=== PATIENT | female | born 1985 | race Caucasian/White ===

== ENCOUNTER 2017-03-16 08:49 | Inpatient (IN) | payer BC ==
[~2017-03-16] VITALS: Ht 167.6 cm; Wt 109.1 kg
[2017-03-16] MEDS ORDERED: OXYTOCIN 30U/ 0.9% NaCL 500ML 500 ML IV SCH (11:01)
[2017-03-16] MEDS ORDERED: LACTATED RINGERS 1,000 ML IV SCH ×2 (11:01→13:33)
[2017-03-16] MEDS ORDERED: OXYTOCIN 10 UNITS/ML, 1ML ONE (11:14)
[2017-03-16] MEDS ORDERED: DEXAMETHASONE 4 MG/ML, 1ML ONE (11:14)
[2017-03-16] MEDS ORDERED: FENTANYL PF 100 MCG/2ML ONE (11:14)
[2017-03-16] MEDS ORDERED: ONDANSETRON 2MG/ML, 2ML ONE ×2 (11:14→14:34)
[2017-03-16] MEDS ORDERED: CEFAZOLIN 1,000 MG ONE (11:14)
[2017-03-16] MEDS ORDERED: EPHEDRINE 50 MG/ML, 1ML ONE (11:14)
[2017-03-16] MEDS ORDERED: KETOROLAC 30 MG/1 ML ONE (11:14)
[2017-03-16] MEDS ORDERED: PHENYLEPHRINE 10 MG/ML ONE (11:14)
[2017-03-16] MEDS ORDERED: OXYTOCIN 30U/ 0.9% NaCL 500ML 500 ML ONE (11:26)
[2017-03-16] MEDS ORDERED: METOCLOPRAMIDE 5 MG/ML, 2ML ONE (11:26)
[2017-03-16] MEDS ORDERED: SODIUM CITRATE/CITRIC ACID 30 ML UDC ONE (11:26)
[2017-03-16] MEDS ORDERED: SODIUM CITRATE/CITRIC ACID 30 ML UDC PO ONE (11:30)
[2017-03-16] MEDS ORDERED: hydrALAzine 20 MG/ML, 1ML IV PRN (11:30)
[2017-03-16] MEDS ORDERED: MIDAZOLAM 1 MG/ML, 2ML IV PRN (11:30)
[2017-03-16] MEDS ORDERED: MEPERIDINE/PF 25MG/0.5ML IVPush PRN (11:30)
[2017-03-16] MEDS ORDERED: OXYcodone 5 MG/5 ML ORAL.SOL UDC PO PRN (11:30)
[2017-03-16] MEDS ORDERED: EPHEDRINE 50 MG/ML, 1ML IVPush PRN (11:30)
[2017-03-16] MEDS ORDERED: LACTATED RINGERS 1,000 ML IV ONE (11:30)
[2017-03-16] MEDS ORDERED: ONDANSETRON 2MG/ML, 2ML IVPush PRN (11:30)
[2017-03-16] MEDS ORDERED: ALBUTEROL SULFATE 2.5 MG/3 ML NPPB PRN (11:30)
[2017-03-16] MEDS ORDERED: LACTATED RINGERS 1,000 ML IVBOLUS ONE (11:30)
[2017-03-16] MEDS ORDERED: HYDROmorphone 1 MG/ML, 1ML IV PRN (11:30)
[2017-03-16] MEDS ORDERED: HYDROcodone/APAP 7.5-325MG/15ML UDC PO PRN (11:30)
[2017-03-16] MEDS ORDERED: LABETALOL 5MG/ML, 20ML IV PRN (11:30)
[2017-03-16] MEDS ORDERED: METOCLOPRAMIDE 5 MG/ML, 2ML IV ONE (11:30)
[2017-03-16] MEDS ORDERED: FENTANYL PF 100 MCG/2ML IV PRN (11:30)
[2017-03-16 11:36] LABS: HEMATOCRIT 36.5 % (34.6-47.8); HEMOGLOBIN 12.4 g/dL (11.7-16.4); WHITE BLOOD COUNT 13.1 x10^3/uL (3.4-10)
[2017-03-16] MEDS ORDERED: NEWBORN KIT ONE (11:54)
[2017-03-16] MEDS ORDERED: MISOPROSTOL 200 MCG TABLET ONE (12:00)
[2017-03-16] MEDS ORDERED: CARBOPROST TROMETHAMINE 250 MCG/ML, 1ML IM ONE ×2 (12:00→15:00)
[2017-03-16] MEDS ORDERED: METHYLERGONOVINE 0.2 MG/ML IM ONE (12:00)
[2017-03-16] MEDS: LACTATED RINGERS 1,000 ML IV SCH ×2 (13:33→18:41)
[2017-03-16] MEDS: OXYTOCIN 30U/ 0.9% NaCL 500ML 500 ML IV SCH ×2 (13:33→18:41)
[2017-03-16] MEDS ORDERED: morphine SULFATE 10 MG/ML, 1ML IVPush PRN (14:00)
[2017-03-16] MEDS ORDERED: OXYcodone/APAP 5/325MG TABLET PO PRN (14:00)
[2017-03-16] MEDS ORDERED: MISOPROSTOL 200 MCG TABLET PR PRN (14:00)
[2017-03-16] MEDS ORDERED: ONDANSETRON 2MG/ML, 2ML IV PRN (14:00)
[2017-03-16] MEDS: METHYLERGONOVINE 0.2 MG/ML IM PRN ×2 (14:00→18:02)
[2017-03-16] MEDS ORDERED: MISOPROSTOL 200 MCG TABLET PR ONE (15:00)
[2017-03-16] MEDS ORDERED: OXYcodone 5 MG/5 ML ORAL.SOL UDC ONE (15:21)
[2017-03-16] MEDS ORDERED: morphine SULFATE 10 MG/ML, 1ML ONE (15:47)
[2017-03-16] MEDS: morphine SULFATE 10 MG/ML, 1ML IVPush PRN ×3 (15:50→21:13)
[2017-03-16 16:40] VITALS: BP 137/84
[2017-03-16 17:38] VITALS: BP 128/81
[2017-03-16 18:11] LABS: HEMATOCRIT 30.8 % (34.6-47.8); HEMOGLOBIN 10.6 g/dL (11.7-16.4); WHITE BLOOD COUNT 21.5 x10^3/uL (3.4-10)
[2017-03-16] MEDS: OXYcodone IR 5MG TABLET PO PRN ×2 (18:51→23:07)
[2017-03-16] MEDS: KETOROLAC 30 MG/1 ML IV SCH (19:00)
[2017-03-16 19:30] VITALS: BP 139/82
[2017-03-16 20:49] LABS: HEMATOCRIT 28.9 % (34.6-47.8); HEMOGLOBIN 9.9 g/dL (11.7-16.4); WHITE BLOOD COUNT 19.4 x10^3/uL (3.4-10)
[2017-03-16] MEDS: ACETAMINOPHEN 325 MG TABLET PO PRN (23:07)
[2017-03-16 23:25] VITALS: BP 125/72
[2017-03-17] MEDS: KETOROLAC 30 MG/1 ML IV SCH ×4 (01:00→18:38)
[2017-03-17] MEDS: ACETAMINOPHEN 325 MG TABLET PO PRN ×4 (02:44→16:11)
[2017-03-17] MEDS: OXYcodone IR 5MG TABLET PO PRN ×5 (02:45→21:51)
[2017-03-17 04:28] VITALS: BP 115/72
[2017-03-17 06:28] LABS: HEMATOCRIT 25.5 % (34.6-47.8); HEMOGLOBIN 8.6 g/dL (11.7-16.4)
[2017-03-17 07:30] VITALS: BP 105/65
[2017-03-17] MEDS: PRENATAL VIT/IRON/FA 1 EACH TABLET PO SCH (09:00)
[2017-03-17] MEDS: OXYTOCIN 30U/ 0.9% NaCL 500ML 500 ML IV SCH ×2 (09:33→19:33)
[2017-03-17] MEDS: LACTATED RINGERS 1,000 ML IV SCH ×2 (09:33→19:33)
[2017-03-17] MEDS: DOCUSATE 100 MG CAPSULE PO PRN ×2 (10:46→21:51)
[2017-03-17] MEDS: morphine SULFATE 10 MG/ML, 1ML IVPush PRN ×2 (12:06→17:22)
[2017-03-17 19:35] VITALS: BP 143/88
[2017-03-17 22:45] VITALS: BP 103/62
[2017-03-18] MEDS: KETOROLAC 30 MG/1 ML IV SCH ×4 (00:56→18:34)
[2017-03-18] MEDS: OXYcodone IR 5MG TABLET PO PRN ×4 (03:48→20:33)
[2017-03-18] MEDS: LACTATED RINGERS 1,000 ML IV SCH ×2 (05:33→15:33)
[2017-03-18] MEDS: OXYTOCIN 30U/ 0.9% NaCL 500ML 500 ML IV SCH ×2 (05:33→15:33)
[2017-03-18] MEDS: PRENATAL VIT/IRON/FA 1 EACH TABLET PO SCH (08:22)
[2017-03-18] MEDS: DOCUSATE 100 MG CAPSULE PO PRN ×2 (08:22→20:33)
[2017-03-18 10:10] VITALS: BP 113/74
[2017-03-18] MEDS ORDERED: KETOROLAC 30 MG/1 ML ONE ×2 (12:53→18:31)
[2017-03-18 19:35] VITALS: BP 129/83
[2017-03-18] MEDS: ACETAMINOPHEN 325 MG TABLET PO PRN (20:34)
[2017-03-19] MEDS: ACETAMINOPHEN 325 MG TABLET PO PRN ×6 (00:15→20:51)
[2017-03-19] MEDS: OXYcodone IR 5MG TABLET PO PRN ×6 (00:15→20:51)
[2017-03-19] MEDS: IBUPROFEN 600 MG TABLET PO PRN ×4 (00:16→19:29)
[2017-03-19] MEDS: OXYTOCIN 30U/ 0.9% NaCL 500ML 500 ML IV SCH ×3 (01:33→21:33)
[2017-03-19] MEDS: LACTATED RINGERS 1,000 ML IV SCH ×3 (01:33→21:33)
[2017-03-19] MEDS: DOCUSATE 100 MG CAPSULE PO PRN ×2 (08:40→19:30)
[2017-03-19] MEDS: PRENATAL VIT/IRON/FA 1 EACH TABLET PO SCH (08:40)
[2017-03-19 08:46] VITALS: BP 134/95
[2017-03-19 12:34] VITALS: BP 147/87
[2017-03-19 20:48] VITALS: BP 137/91
[2017-03-20] MEDS: ACETAMINOPHEN 325 MG TABLET PO PRN (01:17)
[2017-03-20] MEDS: OXYcodone IR 5MG TABLET PO PRN ×4 (01:17→16:06)
[2017-03-20] MEDS: IBUPROFEN 600 MG TABLET PO PRN ×3 (01:17→16:06)
[2017-03-20 01:20] VITALS: BP 133/84
[2017-03-20 07:20] VITALS: BP 146/92
[2017-03-20] MEDS: PRENATAL VIT/IRON/FA 1 EACH TABLET PO SCH (07:25)
[2017-03-20] MEDS: DOCUSATE 100 MG CAPSULE PO PRN (07:25)
[2017-03-20] MEDS: LACTATED RINGERS 1,000 ML IV SCH (07:33)
[2017-03-20] MEDS: OXYTOCIN 30U/ 0.9% NaCL 500ML 500 ML IV SCH (07:33)
[2017-03-20] MEDS ORDERED: OXYC-302 PO (10:04)
[2017-03-20] MEDS ORDERED: IBUP-1222 PO (10:05)
== END 2017-03-20 18:42 | disposition home or self-care (01) | DRG 765 ==
LOC: LDIP 10:16 → 2NW 16:00
PROVIDERS: ADMIT Obstetrics & Gynecology; ATTEND Obstetrics & Gynecology
PROC: 10D00Z1 Extraction of Products of Conception, Low, Open Approach (ICD-10-PCS; principal; 2017-03-16)
DX: O32.1XX0 Maternal care for breech presentation, not applicable or unspecified (principal); O72.1 Other immediate postpartum hemorrhage; Z37.0 Single live birth; Z3A.39 39 weeks gestation of pregnancy
CPT/HCPCS: 36415; 85014; 85018; 85025; 86850; 86900; J0690; J1100; J1885; J2405; J3010; J2210; J2270; J2370; J2590; J2765; J7120

== ENCOUNTER 2019-07-04 11:24 | Emergency (ER) | payer BC, OTHER ==
[~2019-07-04] VITALS: Ht 167.6 cm; Wt 102.6 kg
[~2019-07-04 11:24] MED LIST: IBUP-1222 PO; OXYC-302 PO
[2019-07-04 12:11] LABS: MEAN CORPUSCULAR HEMOGLOBIN 29.2 pg (27.0-34.8); MEAN CORPUSCULAR HGB CONC 33.7 g/dL (32.4-35.8); MEAN CORPUSCULAR VOLUME 86.6 fL (80-100); MEAN PLATELET VOLUME 7.9 fL (7.4-10.4); PLATELET COUNT 330 x10^3/uL (130-400); RED BLOOD COUNT 5.08 x10^6/uL (3.82-5.3); RED CELL DISTRIBUTION WIDTH 14.1 % (9.6-15.2)
[2019-07-04 12:16] LABS: ALBUMIN 4.1 g/dL (3.4-5.0); ANION GAP 9 mmol/L (5-15); CALCIUM 8.7 mg/dL (8.5-10.1); CHLORIDE 108 mmol/L (98-107)
[2019-07-04 12:22] LABS: CREATININE 1.01 mg/dL (0.55-1.02)
--- NOTE | 2019-07-04 12:40 | NUR ---
DIRECTOR OF SERVICES: PT TO ROOM FROM LOBBY AT THIS TIME. JAMNI
[2019-07-04 12:46] LABS: BASOPHILS # (AUTO) 0.01 x10^3/uL (0-0.1); BASOPHILS % (AUTO) 0 % (0-1); EOSINOPHILS # (AUTO) 0.02 x10^3/uL (0-0.4); EOSINOPHILS % (AUTO) 0 % (1-7); LYMPHOCYTES # (AUTO) 0.45 x10^3/uL (1-3.4); LYMPHOCYTES % (AUTO) 3 % (22-44); MD SCAN; MONOCYTES # (AUTO) 0.31 x10^3/uL (0.2-0.8); MONOCYTES % (AUTO) 2 % (2-9); NEUTROPHILS # (AUTO) 14.71 x10^3/uL (1.8-6.8); NEUTROPHILS % (AUTO) 95 % (42-75)
--- NOTE | 2019-07-04 13:18 | NUR ---
pt presents to ED with c/o uterine cramping and vag bleeding onset this am. pt notes she has only needed one pad today. pt notes lmp 05/21/19, pos x 3 taken at home. EDMD Sahm at bedside to update pt with results and POC. instructed RN to provide clean catch ua. pt a&o, resps even and unlabored. pt notes vag bleeding is scant. pt attached to by and spo2 monitors. call light in reach. awaiting urine results and dispo at this time.
[2019-07-04 13:23] VITALS: BP 127/78
[2019-07-04 13:40] LABS: MICROSCOPIC AUTO
[2019-07-04 13:48] LABS: CULTURE INDICATED? YES
--- NOTE | 2019-07-04 14:27 | NUR ---
per MD Jj, pt neg for UTI. pt given dc instructions with inst to f/u with obgyn for repeat hcg levels. pt a&o, resps even and unlabored, no complaint at dc. all questions answered. pt amb to dc desk with , gait steady.
== END 2019-07-04 15:28 | disposition home or self-care (01) ==
LOC: ED 14:15
DX: O20.0 Threatened abortion (principal); O21.8 Other vomiting complicating pregnancy; R19.7 Diarrhea, unspecified; Z3A.01 Less than 8 weeks gestation of pregnancy
CPT/HCPCS: 36415; 76801; 80048; 81001; 82040; 84702; 85025; 86901; 87086; 99284

== ENCOUNTER 2020-04-09 16:11 | Outpatient (CLI) | payer OTHER ==
[~2020-04-09] VITALS: Ht 167.6 cm; Wt 119.5 kg
[2020-04-09 16:30] VITALS: BP 159/89
[2020-04-09 16:42] LABS: MICROSCOPIC INDICATED
[2020-04-09 16:47] LABS: ALANINE AMINOTRANSFERASE 15 U/L (12-78); ALBUMIN 2.6 g/dL (3.4-5.0); ANION GAP 5 mmol/L (5-15); CALCIUM 8.9 mg/dL (8.5-10.1); CHLORIDE 109 mmol/L (98-107); CREATININE 0.58 mg/dL (0.55-1.02)
[2020-04-09 16:50] LABS: ALKALINE PHOSPHATASE 102 U/L (45-117); BILIRUBIN,TOTAL 0.2 mg/dL (0.2-1.0); TOTAL PROTEIN 6.5 g/dL (6.4-8.2)
[2020-04-09 17:04] LABS: BASOPHILS % (AUTO) 0 % (0-1); EOSINOPHILS % (AUTO) 1 % (1-7); LYMPHOCYTES % (AUTO) 16 % (22-44); MEAN PLATELET VOLUME 8.3 fL (7.4-10.4); MONOCYTES % (AUTO) 8 % (2-9); NEUTROPHILS % (AUTO) 75 % (42-75); PLATELET COUNT 274 x10^3/uL (130-400); RED BLOOD COUNT 4.23 x10^6/uL (3.82-5.3); RED CELL DISTRIBUTION WIDTH 14.5 % (9.6-15.2)
[2020-04-09 17:11] LABS: MD NO
== END 2020-04-09 17:49 | disposition home or self-care (01) ==
LOC: LDOP 16:11
PROVIDERS: ATTEND Obstetrics & Gynecology
DX: O13.3 Gestational [pregnancy-induced] hypertension without significant proteinuria, third trimester (principal); Z3A.35 35 weeks gestation of pregnancy
CPT/HCPCS: 36415; 59025; 80053; 81001; 82570; 84156; 84550; 85025; 87086

== ENCOUNTER 2020-04-20 12:41 | Outpatient (CLI) | payer OTHER ==
[~2020-04-20] VITALS: Ht 167.6 cm; Wt 118.0 kg
[2020-04-20 13:00] VITALS: BP 134/84
[2020-04-20] MEDS ORDERED: PREN1TAB60 PO (15:16)
== END 2020-04-20 15:22 | disposition home or self-care (01) ==
LOC: LDOP 12:41
PROVIDERS: ATTEND Obstetrics & Gynecology
DX: O98.513 Other viral diseases complicating pregnancy, third trimester (principal); O13.3 Gestational [pregnancy-induced] hypertension without significant proteinuria, third trimester; Z3A.36 36 weeks gestation of pregnancy
CPT/HCPCS: 59025; 76815; 87635; U0003

== ENCOUNTER 2020-04-24 10:04 | Inpatient (IN) | payer OTHER ==
[~2020-04-24] VITALS: Ht 167.6 cm; Wt 118.0 kg
[~2020-04-24 10:04] MED LIST changes: +PREN1TAB60 PO
[2020-04-24] MEDS ORDERED: NEWBORN KIT ONE (10:22)
[2020-04-24] MEDS ORDERED: SODIUM CITRATE/CITRIC ACID 15 ML UDC ONE (10:23)
[2020-04-24] MEDS ORDERED: METOCLOPRAMIDE 5 MG/ML, 2ML ONE (10:23)
[2020-04-24] MEDS ORDERED: OXYTOCIN 30U/ 0.9% NaCL 500ML 500 ML ONE (10:23)
[2020-04-24] MEDS ORDERED: METOCLOPRAMIDE 5 MG/ML, 2ML IV ONE (11:00)
[2020-04-24] MEDS ORDERED: LACTATED RINGERS 1,000 ML IVBOLUS ONE (11:00)
[2020-04-24] MEDS ORDERED: PLEASE ENTER HEIGHT AND WEIGHT MC SCH (11:00)
[2020-04-24] MEDS ORDERED: SODIUM CITRATE/CITRIC ACID 30 ML UDC PO ONE (11:00)
[2020-04-24 11:29] LABS: BASOPHILS % (AUTO) 0 % (0-1); EOSINOPHILS % (AUTO) 1 % (1-7); LYMPHOCYTES % (AUTO) 15 % (22-44); MEAN CORPUSCULAR HGB CONC 33.2 g/dL (32.4-35.8); MEAN PLATELET VOLUME 8.6 fL (7.4-10.4); MONOCYTES % (AUTO) 7 % (2-9); NEUTROPHILS % (AUTO) 76 % (42-75); PLATELET COUNT 253 x10^3/uL (130-400); RED BLOOD COUNT 4.28 x10^6/uL (3.82-5.3); RED CELL DISTRIBUTION WIDTH 14.9 % (9.6-15.2)
[2020-04-24 11:32] LABS: MD NO
[2020-04-24] MEDS ORDERED: EPHEDRINE 50 MG/ML, 1ML ONE (11:51)
[2020-04-24] MEDS ORDERED: OXYTOCIN 10 UNITS/ML, 1ML ONE (11:51)
[2020-04-24] MEDS ORDERED: DEXAMETHASONE 4 MG/ML, 1ML ONE (11:51)
[2020-04-24] MEDS ORDERED: PHENYLEPHRINE 10 MG/ML ONE (11:51)
[2020-04-24] MEDS ORDERED: CEFAZOLIN 1,000 MG ONE (11:51)
[2020-04-24] MEDS ORDERED: KETOROLAC 30 MG/1 ML ONE (11:51)
[2020-04-24] MEDS ORDERED: ONDANSETRON 2MG/ML, 2ML ONE (11:51)
[2020-04-24] MEDS ORDERED: FENTANYL PF 100 MCG/2ML ONE (11:52)
[2020-04-24] MEDS ORDERED: OXYcodone 5 MG/5 ML ORAL.SOL UDC PO PRN (12:00)
[2020-04-24] MEDS ORDERED: HYDROcodone/APAP 7.5-325MG/15ML UDC PO PRN (12:00)
[2020-04-24] MEDS ORDERED: FENTANYL PF 100 MCG/2ML IV PRN (12:00)
[2020-04-24] MEDS ORDERED: ALBUTEROL SULFATE 2.5 MG/3 ML NPPB PRN (12:00)
[2020-04-24] MEDS ORDERED: MEPERIDINE/PF 25MG/0.5ML IVPush PRN (12:00)
[2020-04-24] MEDS ORDERED: ONDANSETRON 2MG/ML, 2ML IVPush PRN (12:00)
[2020-04-24] MEDS ORDERED: HYDROmorphone 2 MG/ML, 1ML IVPush PRN (12:00)
[2020-04-24] MEDS ORDERED: MIDAZOLAM 1 MG/ML, 2ML IV PRN (12:00)
[2020-04-24] MEDS ORDERED: PROMETHAZINE 25 MG/ML, 1ML IV PRN (12:00)
[2020-04-24] MEDS ORDERED: METOPROLOL 1 MG/ML, 5ML IV PRN (12:00)
[2020-04-24] MEDS ORDERED: LABETALOL 5MG/ML, 20ML IV PRN (12:00)
[2020-04-24] MEDS ORDERED: hydrALAzine 20 MG/ML, 1ML IV PRN (12:00)
[2020-04-24] MEDS ORDERED: ALBUTEROL/IPRATROPIUM 2.5MG/0.5MG, 3 ML NPPB PRN (12:00)
[2020-04-24] MEDS ORDERED: EPHEDRINE 50 MG/ML, 1ML IVPush PRN (12:00)
[2020-04-24] MEDS ORDERED: HYDROmorphone 2 MG/ML, 1ML ONE (12:32)
[2020-04-24] MEDS: LACTATED RINGERS 1,000 ML IV SCH ×4 (13:00→23:00)
[2020-04-24] MEDS: OXYTOCIN 30U/ 0.9% NaCL 500ML 500 ML IV SCH ×2 (13:00→23:00)
[2020-04-24] MEDS ORDERED: MORPHINE SULFATE 4 MG/ML, 1ML IVPush PRN (13:00)
[2020-04-24] MEDS ORDERED: ONDANSETRON 2MG/ML, 2ML IV PRN (13:00)
[2020-04-24] MEDS ORDERED: MISOPROSTOL 200 MCG TABLET PR PRN (13:00)
[2020-04-24] MEDS ORDERED: IBUPROFEN 600 MG TABLET PO PRN (13:00)
[2020-04-24 14:29] VITALS: BP 134/74
[2020-04-24] MEDS: OXYcodone IR 5MG TABLET PO PRN ×2 (15:04→20:39)
[2020-04-24] MEDS: KETOROLAC 30 MG/1 ML IV SCH (19:07)
[2020-04-24 19:15] VITALS: BP 139/82
[2020-04-24] MEDS: DOCUSATE 100 MG CAPSULE PO PRN (20:38)
[2020-04-24 22:19] LABS: BASOPHILS % (AUTO) 0 % (0-1); EOSINOPHILS % (AUTO) 0 % (1-7); LYMPHOCYTES % (AUTO) 9 % (22-44); MEAN PLATELET VOLUME 8.4 fL (7.4-10.4); MONOCYTES % (AUTO) 5 % (2-9); NEUTROPHILS % (AUTO) 85 % (42-75); PLATELET COUNT 237 x10^3/uL (130-400); RED BLOOD COUNT 3.93 x10^6/uL (3.82-5.3); RED CELL DISTRIBUTION WIDTH 14.8 % (9.6-15.2)
[2020-04-24 22:23] LABS: MD NO
[2020-04-25] MEDS: OXYcodone IR 5MG TABLET PO PRN ×4 (00:27→23:04)
[2020-04-25] MEDS: SIMETHICONE 80 MG CHEW TAB PO PRN ×3 (00:27→23:02)
[2020-04-25] MEDS: KETOROLAC 30 MG/1 ML IV SCH ×4 (00:53→18:32)
[2020-04-25 01:30] VITALS: BP 123/74
[2020-04-25 04:40] VITALS: BP 123/76
[2020-04-25] MEDS: LACTATED RINGERS 1,000 ML IV SCH ×4 (05:00→19:00)
[2020-04-25] MEDS: OXYcodone/APAP 5/325MG TABLET PO PRN ×2 (05:59→10:27)
[2020-04-25 07:40] VITALS: BP 125/78
[2020-04-25] MEDS: OXYTOCIN 30U/ 0.9% NaCL 500ML 500 ML IV SCH ×2 (09:00→19:00)
[2020-04-25] MEDS ORDERED: PRENATAL VIT/IRON/FA 1 EACH TABLET PO SCH (09:00)
[2020-04-25] MEDS: DOCUSATE 100 MG CAPSULE PO PRN ×2 (09:07→23:02)
[2020-04-25 12:41] VITALS: BP 136/80
[2020-04-25 20:00] VITALS: BP 145/87
[2020-04-26] MEDS: KETOROLAC 30 MG/1 ML IV SCH ×3 (00:26→12:30)
[2020-04-26] MEDS: OXYcodone IR 5MG TABLET PO PRN ×2 (06:15→10:40)
[2020-04-26 07:55] VITALS: BP 142/86
[2020-04-26] MEDS: DOCUSATE 100 MG CAPSULE PO PRN (08:25)
[2020-04-26] MEDS ORDERED: IBUP-1222 PO (08:42)
[2020-04-26] MEDS ORDERED: DOCU-131 PO (08:42)
[2020-04-26] MEDS ORDERED: OXYC-302 PO (08:42)
[2020-04-26] MEDS ORDERED: KETOROLAC 30 MG/1 ML ONE (12:27)
== END 2020-04-26 13:27 | disposition home or self-care (01) | DRG 788 ==
LOC: LDIP 10:04 → 2NW 14:02
PROVIDERS: ADMIT Obstetrics & Gynecology; ATTEND Obstetrics & Gynecology
PROC: 10D00Z1 Extraction of Products of Conception, Low, Open Approach (ICD-10-PCS; principal; 2020-04-24)
DX: O99.214 Obesity complicating childbirth (principal); E66.01 Morbid (severe) obesity due to excess calories; O34.211 Maternal care for low transverse scar from previous cesarean delivery; O13.4 Gestational [pregnancy-induced] hypertension without significant proteinuria, complicating childbirth; Z37.0 Single live birth; Z3A.37 37 weeks gestation of pregnancy
CPT/HCPCS: 36415; 85025; 86592; 86850; 86900; 86923; G0378; J0690; J1100; J1170; J1885; J2405; J3010; J2270; J2370; J2590; J2765; J7120